=== PATIENT | male | born 2000 | race Caucasian/White ===

== ENCOUNTER 2024-10-25 12:58 | Emergency (ER) | payer BC ==
[2024-10-25] MEDS ORDERED: Ondansetron ODT 4 MG TAB ONE (13:55)
[2024-10-25] MEDS ORDERED: Ibuprofen 800 MG TAB ONE (13:55)
== END 2024-10-25 14:00 | disposition home or self-care (01) ==
LOC: MADERS 12:58
DX: J06.9 Acute upper respiratory infection, unspecified (principal)
CPT/HCPCS: 87428; 99283; Q0162

== ENCOUNTER 2025-07-28 10:59 | Emergency (ER) | payer BC | END 2025-07-28 11:50 | disposition home or self-care (01) | LOC: MADERS 10:59 | DX: J06.9 Acute upper respiratory infection, unspecified (principal) | CPT/HCPCS: 87428; 99283 ==